=== PATIENT | male | born 1980 | race Caucasian/White ===

== ENCOUNTER 2017-09-16 13:40 | Emergency (ER) | payer OTHER, SELFPAY ==
[2017-09-16 13:51] VITALS: BP 130/90; PULSE 76; RESP 20; TEMP 36.6; O2SAT 98; BMI 31.4
--- NOTE | 2017-09-16 13:59 | XR_ITS ---
XR wrist LT 2V HISTORY: Posterior metallic pain ITS.REASON: INJURED LIFTING CABINET ORDERING PHYSICIAN: Marisa Kerr PATIENT AGE: 37 years COMPARISON: None FINDINGS: No fracture or dislocation. No lytic or blastic change. There is normal mineralization.. The joint spaces are well-preserved. No significant degenerative/arthritic changes. No erosive changes evident.. IMPRESSION: Negative wrist
--- NOTE | 2017-09-16 14:07 | HMH.EDUTC ---
[facility] [place] Clinical Impression: Wrist sprain Qualifiers: Encounter type: initial encounter Laterality: left Qualified Code(s): S63.502A - Unspecified sprain of left wrist, initial encounter Disposition: Home, Self-Care Condition on Discharge: Good Instructions: Wrist Sprain, DI for Wrist Sprain, How To Perform RICE (Rest, Ice, Compress, Elevate) Additional Instructions: *RICE, Rest the extremity, Ice 15-20 minutes 3-4 times daily, Compress- wear the wolfgang wrap as discussed as much as possible to help reduce swelling and pain, Elevate the extremity when at rest *Wolfgang wrap is for support and help control swelling, use it except in the shower. Be sure that is not to tight but not to loose either *Elevate when resting *Ibuprofen 600-800mg every 6-8 hours as needed for pain an inflammation. If need something more can take Tylenol in between doses of Ibuprofen to help Immediately follow up for new or worsening of symptoms, or no noticeable improvement over the next 3-5 days Follow up with family doctor if pain persist for referral to Orthopedics if desired by family doctor Return if needed Prescriptions: Ibuprofen [Ibuprofen 600mg Tab] 600 mg PO Q6H PRN #20 tab PRN Reason: moderated pain Referrals: Arias Silva [Primary Care Provider] - Garry Vann MD [Staff Physician] - Ben Luna MD [Staff Physician] - Time of Disposition: 14:34 Medical Decision Making - Medical Records Medical records reviewed: Yes: I reviewed the patient's medical records. Vital Signs: 09/16/17 13:51 Temperature 97.8 F Temperature Source Temporal Artery Scan Pulse Rate [Right] 76 Respiratory Rate 20 Blood Pressure [Right Arm] 130/90 Blood Pressure Mean [Right Arm] 103 Blood Pressure Position [Right Arm] Sitting 02 Sat by Pulse Oximetry 98 Oxygen Delivery Method Room Air Orders (Tests/Meds): ORDERS Category Date Time Status XR wrist LT 2V Stat Exams 09/16/17 13:59 Taken - Radiology Data #1 Image(s): Wrist Image Reviewed: Yes I reviewed the patient's radiology image w/the ED provider Preliminary Findings: Normal/NAD, No Fracture Seen - Ronal Inquiry Pt receiving controlled substance: No Ronal was queried for this patient: No [facility] [place] H[place] - General Stated complaint: left hand injury [id number] Mode of Arrival: Ambulatory Source of Information: Patient Limitations: No Limitations Description of Symptoms (Recalled from Triage Doc. by RN): LEFT HAND INJURY 1 WK AGO HEENT Symptoms (Recalled from RN notes): No Resp Symptoms (Recalled from RN notes): No Skin Symptoms (Recalled from RN notes): No MS Symptoms (Recalled from RN notes): Yes Functional Status (Recalled from RN notes): N - History of Present Illness Provider Complaint: Patient state that he and his daughter was packing a dresser when he accidently got his hand pinned between the dresser and door facing States that it pinched his little finger with his ring and caused a small tear which has since healed but still having pain in his wrist area when he tries to pick something up that is heavy - Related Data Previous Rx's Medication Instructions Recorded Ibuprofen [Ibuprofen 600mg Tab] 600 mg PO Q6H PRN #20 tab 09/16/17 Allergies Allergy/AdvReac Type Severity Reaction Status Date / Time No Known Allergies Allergy Verified 09/16/17 13:54 - Worker's Comp Is this a Worker's Comp case?: No [facility] History I have reviewed the patient's past medical history: Yes - Social History Smoking Status: Current every day smoker Tobacco Type: cigarettes Alcohol Intake: never - Psychiatric History Expresses thoughts of harming self/others: None Suicide Plan Description: No Plan ROS Obtained: Yes All systems reviewed & no additional complaints - Allergic/Immunologic Comments: Pain in left wrist area after getting it pinned between dresser and door facing about 10 days ago, still has pain when he tries to pick something up that is heavy Phy
--- NOTE | 2017-09-16 14:12 | ED_ITS ---
[facility] [place] Clinical Impression: Wrist sprain Qualifiers: Encounter type: initial encounter Laterality: left Qualified Code(s): S63.502A - Unspecified sprain of left wrist, initial encounter Disposition: Home, Self-Care Condition on Discharge: Good Instructions: Wrist Sprain, DI for Wrist Sprain, How To Perform RICE (Rest, Ice , Compress, Elevate) Additional Instructions: *RICE, Rest the extremity, Ice 15-20 minutes 3-4 times daily, Compress- wear the wolfgang wrap as discussed as much as possible to help reduce swelling and pain, Elevate the extremity when at rest *Wolfgang wrap is for support and help control swelling, use it except in the shower. Be sure that is not to tight but not to loose either *Elevate when resting *Ibuprofen 600-800mg every 6-8 hours as needed for pain an inflammation. If need something more can take Tylenol in between doses of Ibuprofen to help Immediately follow up for new or worsening of symptoms, or no noticeable improvement over the next 3-5 days Follow up with family doctor if pain persist for referral to Orthopedics if desired by family doctor Return if needed Prescriptions: Ibuprofen [Ibuprofen 600mg Tab] 600 mg PO Q6H PRN #20 tab PRN Reason: moderated pain Referrals: Arias Silva [Primary Care Provider] - Garry Vann MD [Staff Physician] - Ben Luna MD [Staff Physician] - Time of Disposition: 14:34 Medical Decision Making - Medical Records Medical records reviewed: Yes: I reviewed the patient's medical records. Vital Signs: 09/16/17 13:51 Temperature 97.8 F Temperature Source Temporal Artery Scan Pulse Rate [Right] 76 Respiratory Rate 20 Blood Pressure [Right Arm] 130/90 Blood Pressure Mean [Right Arm] 103 Blood Pressure Position [Right Arm] Sitting 02 Sat by Pulse Oximetry 98 Oxygen Delivery Method Room Air Orders (Tests/Meds): ORDERS Category Date Time Status XR wrist LT 2V Stat Exams 09/16/17 13:59 Taken - Radiology Data #1 Image(s): Wrist Image Reviewed: Yes I reviewed the patient's radiology image w/the ED provider Preliminary Findings: Normal/NAD, No Fracture Seen - Ronal Inquiry Pt receiving controlled substance: No Ronal was queried for this patient: No [facility] [place] - General Stated complaint: left hand injury [id number] Mode of Arrival: Ambulatory Source of Information: Patient Limitations: No Limitations Description of Symptoms (Recalled from Triage Doc. by RN): LEFT HAND INJURY 1 WK AGO HEENT Symptoms (Recalled from RN notes): No Resp Symptoms (Recalled from RN notes): No Skin Symptoms (Recalled from RN notes): No MS Symptoms (Recalled from RN notes): Yes Functional Status (Recalled from RN notes): N - History of Present Illness Provider Complaint: Patient state that he and his daughter was packing a dresser when he accidently got his hand pinned between the dresser and door facing States that it pinched his little finger with his ring and caused a small tear which has since healed but still having pain in his wrist area when he tries to pick something up that is heavy - Related Data Previous Rx's Medication Instructions Recorded Ibuprofen [Ibuprofen 600mg Tab] 600 mg PO Q6H PRN #20 tab 09/16/17 Allergies Allergy/AdvReac Type Severity Reaction Status Date / Time No Known Allergies Allergy Verified 09/16/17 13:54 - Worker's Comp
[2017-09-16 14:41] VITALS: BP 132/88; PULSE 78; RESP 18; TEMP 37.1
== END 2017-09-16 14:42 | disposition home or self-care (01) ==
PROVIDERS: Emergency Provider Nurse Practitioner; Family Provider Internal Medicine; PCP Internal Medicine
DX: S63.502A Unspecified sprain of left wrist, initial encounter (principal)
CPT/HCPCS: 73100; 99202

== ENCOUNTER → 2021-11-12 09:17 | Outpatient (CLI) | payer OTHER, SELFPAY | PROVIDERS: Nurse Practitioner Family; PCP Family Medicine; Visit Provider Family Medicine | DX: R10.11 Right upper quadrant pain (principal) | CPT/HCPCS: 36415 ==

== ENCOUNTER 2022-10-16 09:40 | Emergency (ER) | payer OTHER, SELFPAY ==
[2022-10-16 10:12] VITALS: BP 108/61; PULSE 65; RESP 16; TEMP 37.4; O2SAT 94; BMI 30.7
--- NOTE | 2022-10-16 10:14 | EXP.UTC ---
Discharge Plan Disposition Patient Disposition: Home, Self-Care Condition: Good Prescriptions Prescriptions: New oseltamivir [Tamiflu] 75 mg capsule 75 mg PO BID Qty: 10 0RF azithromycin [Zithromax] 250 mg tablet 250 mg PO UD DOSE PK Qty: 6 0RF Rx Instructions: Take two (2) tablets today, then one (1) tablet days #2 thru #5 promethazine 25 mg tablet 25 mg PO TID PRN (Reason: nausea and vomiting) Qty: 20 0RF methylprednisolone 4 mg Tablets,Dose Pack 4 mg PO DIRECTED Qty: 21 0RF No Action ibuprofen 600 MG tablet 600 mg PO Q6H PRN (Reason: moderated pain) Qty: 20 0RF amoxicillin-pot clavulanate 1 EACH tablet 1 tab PO Q12H 5 Days Qty: 10 0RF Referrals Follow up/Referrals: Yoseph Mccann [Primary Care Provider] - See instructions Activity Restrictions/Add. Instructions Additional Instructions/Restrictions: Drink plenty of fluids. Take tylenol or ibuprofen for pain or fever. Take the medications as directed. Follow up with your regular doctor. GO TO THE ER FOR ANY WORSENING SYMPTOMS Clinical Impressions Clinical Impression: Influenza A Stand Alone Forms Stand Alone Forms: Work/School Release Instructions Patient Instructions: DI for Influenza -- Adult, Oseltamivir Discharge ED Provider: [facility] General Stated complaint: Cough,Congestion,vomitting Mode of Arrival: Ambulatory Source of Information: Patient Time Seen by Provider: 10/16/22 10:14 Description of Symptoms (Recalled from Triage Doc. by RN): chills, fever, cough since thursday . flu a exposure HEENT Symptoms (Recalled from RN notes): Yes Resp Symptoms (Recalled from RN notes): Yes Skin Symptoms (Recalled from RN notes): No MS Symptoms (Recalled from RN notes): No Functional Status (Recalled from RN notes): n/a History of Present Illness Provider Complaint: He states that for the past 2 days he has had worsening chills, body aches, fever, sore throat and congestion. He has multiple family members with h1n1 influenza at this time. Related Data Previous Rx's Medication Instructions Recorded ibuprofen 600 mg tablet 600 mg PO Q6H PRN moderated pain 09/16/17 #20 tabs amoxicillin 875 mg-potassium 1 tab PO Q12H 5 days #10 tabs 04/29/19 clavulanate 125 mg tablet azithromycin 250 mg tablet 250 mg PO UD DOSE PK #6 tabs 10/16/22 (Zithromax) methylprednisolone 4 mg tablets in 4 mg PO DIRECTED #21 tabs 10/16/22 a dose pack oseltamivir 75 mg capsule (Tamiflu) 75 mg PO BID #10 caps 10/16/22 promethazine 25 mg tablet 25 mg PO TID PRN nausea and 10/16/22 vomiting #20 tabs Allergies Allergy/AdvReac Type Severity Reaction Status Date / Time No Known Allergies Allergy Verified 10/16/22 10:14 Worker's Comp Is this a Worker's Comp case?: No [facility] Disclaimer: The information contained in this section may have been updated after the patient was seen, as this information can be updated by other users. Social History Smoking Status: Current every day smoker tobacco type: cigarettes alcohol intake: never current occupational status: employed Travel in the last 8 weeks: None household members: spouse ROS Obtained: Yes All systems reviewed & no additional complaints except as documented Constitutional Constitutional: Reports chills and Reports fever(s) Eyes Eyes: Denies eye discharge ENT Ears, Nose, Mouth, and Throat: Reports as per HPI Cardiovascular Cardiovascular: Denies chest pain Respiratory Respiratory: Denies chest congestion and Reports cough Gastrointestinal Gastrointestingal: Reports nausea; Denies abdominal pain, constipation, cramping, diarrhea or vomiting Musculoskeletal Musculoskeletal: Denies arthralgias Integumentary/Breasts Skin/Breast: Denies rash Neurologic Neurologic: Denies paresthesias Physical Exam General General appearance: alert and in no apparent distress Head Head exam:
[2022-10-16 10:23] LABS: UTC Influenza A Antigen Positive (Negative); UTC Influenza B Antigen Positive (Negative)
[2022-10-16 12:01] VITALS: BP 108/61; PULSE 65; RESP 16; TEMP 37.4
== END 2022-10-16 12:02 | disposition home or self-care (01) ==
PROVIDERS: Emergency Provider Nurse Practitioner Family; PCP Family Medicine
DX: J10.1 Influenza due to other identified influenza virus with other respiratory manifestations (principal); R05.1 Acute cough; R11.10 Vomiting, unspecified; R50.9 Fever, unspecified
CPT/HCPCS: 87804; 99212; 99214; G0463

== ENCOUNTER 2023-07-22 08:01 | Emergency (ER) | payer OTHER, SELFPAY ==
[2023-07-22 08:10] VITALS: BP 120/79; PULSE 84; RESP 18; TEMP 36.6; O2SAT 96; BMI 30.7
--- NOTE | 2023-07-22 08:24 | ED_ITS ---
Discharge Plan Disposition Patient Disposition: Still a Patient Prescriptions Prescriptions: No Action lisinopril 5 mg tablet 5 mg PO DAILY Patient Comments: TAKE ONE TABLET BY MOUTH EVERY DAY Referrals Follow up/Referrals: Yoseph Mccann [Primary Care Provider] - See instructions Clinical Impressions Clinical Impression: Foreign body in eye Qualifiers: Encounter type: initial encounter Laterality: right Qualified Code(s): T15.91XA - Foreign body on external eye, part unspecified, right eye, initial encounter Discharge ED Provider: Nickolas Thomas [facility] [place] General Stated complaint: WC-Redness and swelling to R eye Mode of Arrival: Ambulatory Source of Information: Patient Limitations: No Limitations Time Seen by Provider: 07/22/23 08:25 Description of Symptoms (Recalled from Triage Doc. by RN): Pt stated that yesterday at work he got something in his right eye. HEENT Symptoms (Recalled from RN notes): Yes Resp Symptoms (Recalled from RN notes): No Skin Symptoms (Recalled from RN notes): No MS Symptoms (Recalled from RN notes): No Functional Status (Recalled from RN notes): n/a History of Present Illness Provider Complaint: 43 yr old male presents for rt eye pain. pt states he was cleaning a tank using a fire hose when he felt something hit him in the eye. today having rt eye pain and sensitive to light Related Data Home Medications Medication Instructions Recorded Confirmed lisinopril 5 mg tablet 5 mg PO DAILY 07/22/23 07/22/23 Allergies Allergy/AdvReac Type Severity Reaction Status Date / Time oxycodone AdvReac Nausea Verified 07/22/23 08:22 Worker's Comp Is this a Worker's Comp case?: No [facility] Disclaimer: The information contained in this section may have been updated after the patient was seen, as this information can be updated by other users. Social History , AUTOMOTIVE DIAGNOSTIC TECHNICIAN) Smoking Status: Current every day smoker tobacco type: cigarettes alcohol intake: never current occupational status: employed Travel in the last 8 weeks: None household members: spouse ROS Obtained: Yes All systems reviewed & no additional complaints except as documented Constitutional Constitutional: Reports system reviewed and no additional complaints, except as documented and Reports as per HPI Eyes Eyes: Reports system reviewed and no additional complaints, except as documented, Reports as per HPI, Reports sensitivity to light, Reports eye pain and Reports other ENT Ears, Nose, Mouth, and Throat: Reports system reviewed and no additional complaints, except as documented Cardiovascular Cardiovascular: Reports system reviewed and no additional complaints, except as documented Respiratory Respiratory: Reports system reviewed and no additional complaints, except as documented Gastrointestinal Gastrointestingal: Reports system reviewed and no additional complaints, except as documented Musculoskeletal Musculoskeletal: Reports system reviewed and no additional complaints, except as documented Integumentary/Breasts Skin/Breast: Reports system reviewed and no additional complaints, except as documented Neurologic Neurologic: Reports system reviewed and no additional complaints, except as documented Endocrine Endocrine: Reports system reviewed and no additional complaints, except as documented Hematologic/Lymphatic Henatologic/Lymphatic: Reports system reviewed and no additional complaints, except as documented Allergic/Immunologic Allergic/Immunologic: Reports system reviewed and no additional complaints, except as documented Physical Exam General General appearance: alert and in no apparent distress Head Head exam: atraumatic and normocephalic Eye Eye exam: Present PERRL, conjunctival redness, conjunctival injection and other (fb noted in rt eye beside pupil.) ENT ENT exam: Present normal exam Neck Neck exam: Present normal inspection Respiratory Respiratory exam: Present normal lung sounds bilaterally Cardiovascular Cardiovascular exam: Present regular rate and normal rhythm Neurological Exam Neurological exam: Present alert and oriented X3 Medical Decision Making Medical Records Medical records reviewed: Yes I reviewed the patient's medical records. Ronal Inquiry Pt receiving controlled substance: No Ronal was queried for this patient: No Vital Signs: 07/22/23 08:10 Temperature 97.9 F Temperature Source Oral Pulse Rate [Right Radial] 84 Respiratory Rate 18 Blood Pressure [Right Arm] 120/79 Blood Pressure Mean [Right Arm] 92 Blood Pressure Source [Right Arm] Automatic Cuff Blood Pressure Position [Right Arm] Sitting 02 Sat by Pulse Oximetry 96 Oxygen Delivery Method Room Air Medical Decision Narrative: sent to ed report to dr grubbs
[2023-07-22 08:27] VITALS: BP 132/87; PULSE 87; RESP 16; TEMP 36.6; O2SAT 97; BMI 30.7
--- NOTE | 2023-07-22 08:30 | PC.NURSE ---
Pt arrived to ED room 2 from [facility]
--- NOTE | 2023-07-22 08:35 | PC.NURSE ---
Dr. Thomas at [facility] for pt eval
--- NOTE | 2023-07-22 08:52 | ED_ITS ---
Discharge Plan Disposition Patient Disposition: Home, Self-Care Prescriptions Prescriptions: No Action lisinopril 5 mg tablet 5 mg PO DAILY Patient Comments: TAKE ONE TABLET BY MOUTH EVERY DAY Referrals Follow up/Referrals: Yoseph Mccann [Primary Care Provider] - See instructions Activity Restrictions/Add. Instructions Additional Instructions/Restrictions: Follow-up with eye doctor within 72 hours, call them to schedule an appointment. They will need to do follow-up exam to ensure that foreign body was completely removed and no residual rust or metal remains. Apply ointment 4 times daily as discussed. Call your family doctor to establish care for this visit to the emergency department and schedule follow-up within 48 hours to ensure improvement. If you have any worsening of your condition or any other concerning signs or symptoms, return to the emergency department or your primary care doctor for further evaluation. Take Tylenol 1000 mg every 6 hours (4 times daily) and ibuprofen 400 mg every 6 hours (4 times daily) as needed with food and water to prevent GI upset and kidney damage. Clinical Impressions Clinical Impression: Foreign body, intraocular, right eye Foreign body in eye Qualifiers: Encounter type: initial encounter Laterality: right Qualified Code(s): T15.91XA - Foreign body on external eye, part unspecified, right eye, initial encounter Discharge ED Provider: Nickolas Thomas General Adult HPI General Chief complaint: Eye Problems Stated complaint: WC-Redness and swelling to R eye Time Seen by Provider: 07/22/23 08:25 Mode of Arrival: Ambulatory Source of Information: Patient Limitations: No Limitations Description of Symptoms (Recalled from ER Triage Doc. by RN): Pt stated that yesterday at work he got something in his right eye. History of Present Illness HPI narrative: 43-year-old male history of hypertension presenting with right eye pain. 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 Has had significant pain since that time. Denies blurry vision, double vision, changes in vision, but having significant 8 out of 10 pain. No other trauma sustained Related Data Home Medications Medication Instructions Recorded Confirmed lisinopril 5 mg tablet 5 mg PO DAILY 07/22/23 07/22/23 Allergies Allergy/AdvReac Type Severity Reaction Status Date / Time oxycodone AdvReac Nausea Verified 07/22/23 08:22 PFSH PFSH Disclaimer: The information contained in this section may have been updated after the patient was seen, as this information can be updated by other users. 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 Surrounding rust ring. No evidence of hyphema, proptosis, entrapment, conjunctival hemorrhage, pupillary changes, cellulitic change, or otherwise irregular ocular findings. Fluorescein exam with focal uptake, but no evidence o) ENT ENT exam: Present mucous membranes moist Neck Neck exam: Present normal inspection, full ROM and trachea midline Respiratory Respiratory exam: Absent respiratory distress, wheezes, stridor, accessory muscle use or prolonged expiratory phase Cardiovascular Cardiovascular exam: Present normal rhythm Abdominal Exam Abdominal exam: Present soft; Absent distention, tenderness, guarding, rebound or rigidity Extremities Exam Extremities exam: Absent edema Neurological Exam Neurological exam: Present alert, oriented X3, CN II-XII intact and normal gait; Absent motor sensory deficit Skin Skin exam: Present warm and dry; Absent diaphoresis or erythema Medical Decision Making Medical Records Medical records reviewed: Yes I reviewed the patient's medical records. Ronal Inquiry Pt receiving controlled substance: No Ronal was queried for this patient: No Vital Signs: 07/22/23 08:10 07/22/23 08:27 Temperature 97.9 F 97.8 F Temperature Source Oral Oral Pulse Rate [Right Radial] 84 87 Respiratory Rate 18 16 Blood Pressure [Right Arm] 120/79 132/87 Blood Pressure Mean [Right Arm] 92 102 Blood Pressure Source [Right Arm] Automatic Cuff Blood Pressure Position [Right Arm] Sitting 02 Sat by Pulse Oximetry 96 97 Oxygen Delivery Method Room Air Orders (Tests/Meds): ED MEDICATIONS Discontinued Medications Generic Name Dose Route Start Last Admin Trade Name Freq PRN Reason Stop Dose Admin Fluorescein Sodium 1 mg 07/22/23 08:26 Fluorescein Sodium 1mg Strip OP 07/22/23 08:27 ONCE ONE Tetracaine HCl 0 ml 07/22/23 08:26 Tetracaine 0.5% Opth Corinna 15ml OP 07/22/23 08:27 ONCE ONE Medical Decision Narrative: 43-year-old male history of hypertension presenting with right eye foreign body about 24 hours prior to this visit. History was obtained via conversation with patient and significant other. On arrival, patient hemodynamically stable, alert, oriented x4, appropriate, GCS 15, moving all extremities spontaneously, pupils equal and reactive to light. Full physical exam performed and significant for well-appearing male no acute distress. He does have conjunctival injection, periorbital erythema of the right eye. Foreign body with focal uptake without Gaudencio sign in the right eye at 2:00 nasally. Extraocular movements intact, visual acuity intact. Tetracaine drops were added, fluorescein for staining. Foreign body was removed with help of cotton tip applicators and insulin needle after numbing. Rust ring was also removed successfully. On reevaluation, patient resting comfortably bed. Given patient presentation, workup, history, this most likely represents metallic foreign body right eye with associated rust ring. Last Td2018, not eligible at this time. Because patient at baseline without signs or symptoms of clinical decompensation, deemed appropriate for discharge. Results were relayed to patient who voiced understanding and were agreeable to outpatient management and follow up. At the time of discharge the patient was hemodynamically stable, tolerating PO, and mobilizing appropriately. Procedures Eye Exam/FB Removal Location: eye (R) Topical anesthetic used: tetracaine Fluorescein Stick(s) used: Yes Time Out performed: No Procedure performed under: direct visualization with magnification and slit-lamp Foreign body: metal Evidence of corneal penetration: Yes Technique: irrigation, cotton tip swab and needle Post-procedure medication: ophthalmic antibiotic and topical anesthetic Eye irrigated w/saline (#ccs): 5 Patient tolerated procedure: well Complications: other (Foreign body removal with successful removal of rust ring as well) Critical Care Critical Care Time Critical Care Time: No
[2023-07-22] MEDS: FLUORESCEIN SODIUM 1MG STRIP 1 MG OP (09:03)
[2023-07-22] MEDS: TETRACAINE 0.5% OPTH SOL 15ML OP (09:03)
[2023-07-22 09:04] VITALS: BP 121/100; PULSE 96; RESP 16; TEMP 36.6; O2SAT 96
== END 2023-07-22 09:04 | disposition home or self-care (01) ==
LOC: UTC 08:19 → ER 08:26
PROVIDERS: Emergency Provider Emergency Medicine; PCP Family Medicine
DX: T15.01XA Foreign body in cornea, right eye, initial encounter (principal); F17.210 Nicotine dependence, cigarettes, uncomplicated; W22.8XXA Striking against or struck by other objects, initial encounter; Y99.0 Civilian activity done for income or pay
CPT/HCPCS: 65220; 99283

== ENCOUNTER 2023-11-10 08:38 | Outpatient (RCR) | payer BC, SELFPAY | END 2023-11-10 09:45 | disposition home or self-care (01) | LOC: PT 08:38 | PROVIDERS: Visit Provider Family Medicine | DX: M54.50 Low back pain, unspecified (principal) | CPT/HCPCS: 97163 ==

== ENCOUNTER 2024-01-27 16:00 | Outpatient (RCR) | payer BC, SELFPAY | END 2024-01-27 16:05 | disposition home or self-care (01) | LOC: PT 16:00 | PROVIDERS: Visit Provider Orthopaedic Surgery | DX: M48.061 Spinal stenosis, lumbar region without neurogenic claudication (principal); M46.96 Unspecified inflammatory spondylopathy, lumbar region; M54.50 Low back pain, unspecified | CPT/HCPCS: 97010; 97014; 97110; 97163; 97164; 97530; G0283 ==

== ENCOUNTER 2025-05-18 17:00 | Outpatient (RCR) | payer BC, SELFPAY | END 2025-05-18 23:59 | disposition home or self-care (01) | LOC: PT 17:00 | PROVIDERS: PCP Family Medicine | DX: Z47.89 Encounter for other orthopedic aftercare (principal); Z98.890 Other specified postprocedural states | CPT/HCPCS: 97014; 97110; 97140; 97161; G0283 ==